=== PATIENT | male | born 2000 | race Caucasian/White ===

== ENCOUNTER 2023-10-22 05:55 | Emergency (ER) | payer OTHER, SELFPAY ==
[2023-10-22 05:57] VITALS: BP 154/96; PULSE 114; RESP 15; TEMP 37.1; O2SAT 95; BMI 33.9
--- NOTE | 2023-10-22 06:02 | W.ED.HEATRA ---
HPI - Head Injury General: Chief complaint: Head Injury Stated complaint: injury to face Time Seen by Provider: 10/22/23 06:02 Source: patient Mode of arrival: ambulatory History of Present Illness: 23-year-old male presents emergency room after being struck in the chin by a metal bar. There was no loss of consciousness. Patient denies any other injuries. patient has an approximately 6 cm laceration on the right side of the chin Onset (ago): minute(s) Mechanism of Injury: work related injury Place: work Loss of Consciousness: no Location of injury: face and mandible Severity: mild Other Injuries: none Associated symptoms: Deny amnesia, confusion, nausea, neck pain, numbness, syncope, tingling, vertigo, visual changes, vomiting or weakness Review of Systems Card: Denies: syncope GI: Denies: nausea or vomiting Musc: Denies: neck pain Neuro: Denies: vertigo or confusion Physical Exam Narrative: EXAM NARRATIVE: 23-year-old male no acute distress has a open gaping 6 cm laceration vertical in orientation across the left side of the chin. No active bleeding. No malocclusion. Procedures Laceration Laceration 1: Site: face Side (If applicable): right Size (cm): 6 Description: linear Depth: simple, single layer Pre-repair: wound explored and irrigated extensively Skin layer closed with: other (prolene) Size (cm): 6-0 Number of sutures: 6 Technique: simple, interrupted Nerve Block Nerve Block 1: Time out performed: Yes Local Anesthetic: lidocaine 1% Amount of anesthesia used (mL): 3 Side: right Intraoral Nerve Block: mental Procedure Successful: Yes Patient Tolerated Procedure: well Complications: none Course Vital Signs: Vital signs: Vital Signs Temperature 98.7 F 10/22/23 05:57 Pulse Rate 114 H 10/22/23 05:57 Respiratory Rate 15 10/22/23 05:57 Blood Pressure 154/96 10/22/23 05:57 Pulse Oximetry 95 10/22/23 05:57 Oxygen Delivery Me thod Room Air 10/22/23 05:57 MDM - Head Injury Medcial Decision Making Wound closed without difficulty good cosmesis hemostasis and approximation of tissues. Wound care instructions given apply topical antibiotic ointment to wound twice a day sutures to removed in 5 to 7 days for work compensation doctor. Follow-up as needed No radiology studies performed this visit Discharge Plan Discharge Patient Disposition: Home Clinical Impression: Facial laceration Prescriptions: No Action No Known Home Medications Discharge Orders: Discharge ED (Routine); Ordered 10/22/23 Ordered By: James Rivera Referrals: Yessi Sanchze MD [Primary Care Provider] - Discharge Diet: Usual diet Discharge Activity: Resume usual activity Patient Instructions: Facial Laceration (ED), Opioid Safety, Pain Management Activity Restrictions/Additional Instructions: Sutures should be removed in 5 to 7 days by your work comp provider. Apply [id number] topical antibiotic ointment to the wound twice a day until sutures are removed. Coding Level of Care Code ED Truck Driving Instructor for Bryan Holguin
[2023-10-22] MEDS: tetanus-dipt-pertussis 0.5 mL SDV IM (07:03)
[2023-10-22 07:07] VITALS: BP 146/92; PULSE 107; O2SAT 97
== END 2023-10-22 07:08 | disposition home or self-care (01) ==
PROVIDERS: Emergency Provider Family Medicine; PCP Family Medicine
DX: S01.81XA Laceration without foreign body of other part of head, initial encounter (principal); W22.8XXA Striking against or struck by other objects, initial encounter; Z23 Encounter for immunization
CPT/HCPCS: 12014; 90471; 90715; 99283